=== PATIENT | male | born 1950 | race Caucasian/White ===

== ENCOUNTER 2019-11-12 14:45 | Inpatient (IN) | payer OTHER ==
[~2019-11-12] VITALS: Ht 180.3 cm; Wt 76.7 kg
[2019-11-12 14:54] VITALS: BP 149/71
[2019-11-12] MEDS ORDERED: REXULTI0.25 MG PO (15:47)
[2019-11-12] MEDS ORDERED: NAMENDA 10 MG T10 MG PO (15:48)
[2019-11-12] MEDS ORDERED: LIPITOR40 MG PO (15:48)
[2019-11-12 16:06] LABS: ABSOLUTE NEUTROPHILS 4.1 thou/uL (1.4-8.2); BASOPHILS 0.5 % (0.0-2.0); EOSINOPHILS 0.8 % (0.0-3.0); HEMATOCRIT 42.5 % (42.0-52.0); HEMOGLOBIN 14.5 gm/dL (14.0-18.0); LYMPHOCYTES 27.6 % (24.0-44.0); MCH 30.6 pg (26.0-34.0); MONOCYTES 8.4 % (1.0-8.0); PLATELET COUNT 226 thou/uL (150-400); POLYS 62.7 % (36.0-66.0); RBC 4.72 mil/uL (4.50-6.00); RDW 12.5 % (10.5-14.5); WBC 6.5 thou/uL (4.0-11.0)
[2019-11-12 16:12] LABS: CALCIUM 9.6 mg/dL (8.5-10.1); CREATININE 1.1 mg/dL (0.7-1.3)
[2019-11-12 16:16] LABS: URINE BILIRUBIN NEGATIVE (Negative); URINE BLOOD NEGATIVE (Negative); URINE CLARITY CLEAR; URINE COLOR YELLOW; URINE GLUCOSE-RANDOM* NEGATIVE (Negative); URINE KETONES NEGATIVE (Negative); URINE LEUKOCYTES-REFLEX NEGATIVE (Negative); URINE NITRITE-REFLEX NEGATIVE (Negative); URINE PROTEIN (DIPSTICK) NEGATIVE (Negative); URINE UROBILINOGEN 0.2 E.U./dl (0.2-1.0)
[2019-11-12 16:18] LABS: ALBUMIN 4.1 g/dL (3.4-5.0); TOTAL BILIRUBIN 0.4 mg/dL (<0.1-1.0); TOTAL PROTEIN 7.2 g/dL (6.4-8.2)
[2019-11-12 17:22] VITALS: BP 143/74
[2019-11-12 17:24] VITALS: BP 143/74
[2019-11-12 18:30] VITALS: BP 144/77
[2019-11-12 19:43] VITALS: BP 113/63
--- NOTE | 2019-11-12 20:19 | NUR ---
PT ADMITTED AMBULATORY FROM HOME ACCOMPANIED BY TRANG. PT DEPRESSED BUT DENIES SI. HAD BEEN ON AN ANTIDEPRESSANT, BUT WITH LITTLE EFFECT. WANTS TO EXPLORE ACTIVITY OPTIONS. 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 CLAIMS TO BE EASILY BORED. ACTIVE WITH HER OWN SOCIAL GROUP OF WOMEN, AND HE FEELS LONELY SOMETIMES. AFFECT FLAT. AMBULATORY, SKIN INTACT AND ABLE TO FOLLOW DIRECTIONS WELL. ADMITS TO SOME MEMORY LOSS, AND THAT DOES BOTHER HIM. VSS. ONLY MEDICAL PROBLEM IS HYPERLIIDEMIA FOR WHICH HE TAKES A STATIN.
[2019-11-12 23:59] VITALS: BP 113/63
--- NOTE | 2019-11-13 03:27 | NUR ---
PT OUT IN DAY ROOM AFTER LEFT. EDGE OF THE GROUP. AFFECT BLUNTED. SOFT SPOKEN AND OBVIOUSLY DEPRESSED. TOOK HS MEDS ORDERED W/O PROBLEM. RETURNED TO ROOM AND HAS SLEPT WELL THROUGH THE NIGHT.
[2019-11-13 08:13] VITALS: BP 135/77
[2019-11-13 09:27] VITALS: BP 135/77
[2019-11-13 10:37] VITALS: BP 135/77
--- NOTE | 2019-11-13 11:51 | NUR ---
ASSUMED CARE AT 0700. PATIENT IS ALERT AND ORIENTED X2. PATIENT OSBORNE'S, CRYSTAL FLAT GRINDER ARE EQUAL. LUNGS ARE CLEAR. ABD IS SOFT WITH BSX4. PATIENT IS VERY ANXIOUS AND IS PACING. DR. CORTES NOTIFIED. LOW DOSE ATIVAN ORDERED. LOW DOSE BP MED ALSO WITH PARAMETERS TO HOLD IF <120 SBP. UP TO THE BATHROOM TO VOID JOVITA COLORED URINE. NO EDEMA NOTED. OUT TO THE DINING ROOM FOR MEALS. FALL AND SAFETY PROTOCOLS IN PLACE. DENIES ANY PAIN AT THIS TIME. WILL CONTINUE TO MONITER. PATIENT IS DEPRESSED AND IS HERE FOR MEDICATION ADJUSTMENT.
--- NOTE | 2019-11-13 12:40 | NUR ---
FLAKO met with pt's spouse and son while they visited this AM and set up a family meeting for 11:45 on 11/15 per request from the treatment team meeting this AM. Flako completed the Intake assessment and TP after speaking with pt's spouse earlier this AM. Pt lives in the home and has early onset dementia. Spouse reports that his memory is very short, and it makes him anxious and depressed. Pt is currently seeing Dr Johnson psychiatric care, and spouse has support with her bible group at [facility]. FLAKO suggested that she get extra support with the [employer] and advised her to consider looking for Memory care placement right away, and to have it lined up before he needs it. She stated that he has LTC insurance.
[2019-11-13 19:37] VITALS: BP 122/81
[2019-11-13 22:48] VITALS: BP 122/81
--- NOTE | 2019-11-13 23:47 | NUR ---
PATIENT HAS BEEN IN BED ALL NIGHT. HE LOOKS SAD. HE DENIES PAIN AND JUST WANTS TO BE LEFT ALONE. HE IS QUIET. PATIENT WAS UP TO THE BATHROOM TO VOID. HE AMBULATES WELL ON HIS OWN AND IS STEADY. VSS. BED IN LOW POSITION. ASSESSMENT NEGATIVE. WILL CONTINUE TO MONITOR.
--- NOTE | 2019-11-14 05:35 | NUR ---
PATIENT HAS SLEPT THRU THE NIGHT AND IS STILL SLEEPING. HE IS UP TO THE BATHROOM AD NNAMDI. DENIES PAIN. CONTINUING TO MONITOR.
[2019-11-14 09:18] VITALS: BP 134/75
--- NOTE | 2019-11-14 10:18 | NUR ---
VISIBLE IN DAYROOM ON INITITAL ASSESSMENT THIS AM- ANXIOUS FACIAL EXPRESSION AND SOME RESTLESSNESS,FIDGETING OBSERVED IN FORM OF TAPPING FOOT CONSTANTLY-SPEECH SLIGHTLY PRESSURED. DENIES C/O PAIN OR DISCOMFORT AND REPORTS SLEEP "PRETTY GOOD LAST NIGHT" AFTER BREAKFAST PACING RAPIDLY IN HALLWAYS DESPITE GROUP GOING ON IN DAYROOM WHEN DIRECTED TOWARD GROUP STATES THE ONLY THING THAT HELPS MY ANXIETY IS WALKING" SPOKE WITH PT BRIEFLY RE SOME BASIC GROUNDING,RELAXATION TECHNIQUES INCLUDING SIMPLE DISTRACTION TECHNIQUES AND DEEP BREATHING-APPEARS SLIGHTLY RESISITVE TO THESE SUGGESTIONS STATING THEY "WON'T HELP" ATIVAN 0.5MGPO PRN AT 0945 FOR ABOVE REPORTED AND PT DID ATTEND REMAINDER OF GROUP WITH MUCH ENCOURAGEMENT. IN ROOM AT THIS TIME APPEARS TO BE RESTING QUIETLY ON BED-REPORTS ANXIETY "BETTER"
[2019-11-14 19:20] VITALS: BP 129/73
--- NOTE | 2019-11-15 05:28 | NUR ---
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 HE SPENT EARLY EVENING PACING IN THE HALLS. SOMEWHAT ANXIOUS. PLEASANT ON APPROACH. PLEASANT AND COOPERATIVE WITH ASSESSMENT PROCESS, MEDS. NO APPARENT DISTRESS, NO C/O. WILL CONTINUE TO MONITOR.
--- NOTE | 2019-11-15 09:39 | NUR ---
CAME OUT BRIEFLY FOR AM GROUP BEFORE RETURNING TO ROOM-REPORTS ANXIETY RATED A 8 DURING AM ASSESSMENT STATES HE WOKE UP ANXIOUS AND THAT MORNINGS ARE USUALLY "WORSE" FAR ANXIETY LEVEL GOES. DENIES SI/SH/HI AND SLIGHT INCREASE IN SPONTANEOUS VERBALIZATION-USING HUMOR. GAIT IS STEADY WITHOUT ASSISTIVE DEVICES. FACE FLUSHED BUT BP IS WNL AT 128/72. DENIES SO PAIN/DISCOMFORT AND STATES HE SLEPT "PRETTY GOOD" LAST NIGHT.
--- NOTE | 2019-11-15 11:57 | NUR ---
PT RATES ANXIETY SYMPTOMS A 3 ON 1-10 SCALE AT THIS TIME-REPORTS DEPRESSIVE SYMPTOMS A 6. DENIES SI/SH/HI. DESCRIBES CURRENT MOOD "UPBEAT"
--- NOTE | 2019-11-15 12:50 | NUR ---
FLAKO and Dr Posada completed a family meeting via telephone as pt's spouse could not drive in the winter weather. Dr posada reinforced that she needed to start considering PD paid out of pocket or with their LTC insurance. Pt's spouse was ignorant of most of the request for inofrmation regarding the plans for her when he can not longer be cared for in the home. Dr Posada recomended respite care while they tried to go a vacation in Nov to [place]. FLAKO requested that she have the information ready to report on Saturday 11/18 at 2pm. Flako encouraged her to have her family involved as support, as she seemed overwhelmed with the task. It was established that this pt was going home at d/c.
--- NOTE | 2019-11-15 18:23 | NUR ---
REPORTS NO RESULTS FROM MOM/PRUNE JUICE GIVEN LAST PM-STATES LAST BM WAS ON 11/11 PER PT REPORT. BS ACTIVE -X4. ABDOMEN SOFT, NON-TENDER ON PALPATION. DR. STEIN CONTACTED ORDERS RECEIVED. FLEETS ENEMA GIVEN PER ORDER
--- NOTE | 2019-11-15 18:47 | NUR ---
DID HAVE LARGE FORMED BM AFTER FLEETS ENEMA-ENCOURAGED INCREASED FLUIDS-AMBULATION
[2019-11-15 20:03] VITALS: BP 121/72
--- NOTE | 2019-11-16 02:45 | NUR ---
ASSUMED CARE OF PATIENT ON 11/15/2019 AT 1915. PATIENT IS OBSERVED PACING THE HALLWAYS, BUT APPEARS WITH AN APPROPRIATE AFFECT. HE IS DISCHARGED FOCUS REPORTING TO THIS NURSE 'THIS ISNT THE FIRST TIME CARLOS BEEN HERE IM KIND OF BORED SO ID LIKE TO GO HOME.' PATIENT IS ALERT AND ORIENTED 1-2X. HE WAS CALM AND COOPERATIVE AND WAS COMPLIANT WITH ASSESSMENT AND MEDICATION. HE DENIED SI HI WELL HALLUCINATIONS. HE DOES APPEAR ANXIOUS R/T OBSERVATIONS OF BODY LANGUAGE SUCH FIDGETY, PACING, AND APPEARING WITH A NERVOUS AFFECT AT TIMES. HE DID NOT REPORT ANY MEDICAL CONCERNS WITH NO S/S OF DISTRESS. NURSING WILL MAINTAIN ALL PRECAUTIONS TO ENSURE SAFETY.
[2019-11-16 08:17] VITALS: BP 119/71
[2019-11-16 09:26] VITALS: BP 119/71
--- NOTE | 2019-11-16 12:18 | NUR ---
ASSUMED CARE AT 0700 THIS MORNING. ATE ON THE UNIT. TOOK MEDICATIONS WITHOUT PROBLEMS NOTED.
[2019-11-16 19:06] VITALS: BP 150/76
--- NOTE | 2019-11-17 00:23 | NUR ---
ASSUMED CARE OF PATIENT ON 11/16/2019 AT APPROXIMATELY 1915. PATIENT WAS OBSERVED WANDERING THE HALLS WITH A BLANK PERPLEXED AFFECT. WHEN GREETED HE IS CALM AND COOPERATIVE AND WILL CONVERSATE WITH YOU. HE IS MEDICATION COMPLAINT, NO AGGRESSIVE BX OBSERVED. HE DENIES SI HI, DENIES ANY FLEETING THOUGHTS TO HARM SELF OR OTHERS. HE DENIED MEDICAL CONCERNS WITH NO S/S OF DISTRESS. NURSING WILL MAINTAIN ALL PRECAUTIONS TO ENSURE SAFETY AT ALL TIMES.
--- NOTE | 2019-11-17 04:36 | NUR ---
PATIENT AWOKE, C/O ANXIETY THIS NURSE ADMINISTERED LORAZEPAM 0.5MG PRN ORDERED. PATIENT REPORTS FEELING ANXIOUS R/T DISCHARGE AND EXCITEMENT. HE REPORTS WALKING HELPS REDUCE HIS ANXIETY AND LOOKING FORWARD TO DISCHARGE TO GO TO [place] TO BE ABLE TO WALK AND EXPLORE. WILL CONTINUE TO MONITOR.
[2019-11-17 07:51] VITALS: BP 123/75
[2019-11-17 09:49] VITALS: BP 123/75
--- NOTE | 2019-11-17 09:54 | NUR ---
ASSUMED CARE AT 0700 THIS MORNING. PT. REMAINS SECLUSIVE IN HIS ROOM. HE COMES OUT TO EAT AND RETURNS TO HIS ROOM RIGHT AFTER. HE WILL WALK IN THE HALLS AT TIMES. HE IS PLEASANT AND COOPERATIVE IN HIS INTERACTIONS WITH STAFF. HE TAKES HIS MEDICATIONS WITHOUT DIFFICULTIES.
[2019-11-17 19:17] VITALS: BP 121/80
[2019-11-17 21:15] VITALS: BP 121/80
--- NOTE | 2019-11-18 04:00 | NUR ---
PATIENT HAS BEEN SLEEPING ALL NIGHT. HE DID GET UP TO USE THE BATHROOM TO VOID A COUPLE OF TIMES. HE DOES HAVE A FLAT EFFECT. DENIES PAIN. DENIES SI/HI. STILL IS ISOLATIVE TO ROOM AND WITHDRAWN. DOES NOT TALK UNLESS SPOKEN TOO FIRST. VSS. BED IN LOW POSITION.
--- NOTE | 2019-11-18 04:23 | NUR ---
PATIENT UP AND PACING THE HALLS. ASKED IF HE WAS ABLE TO SLEEP. HE STATES HE FEELS SO ANXIOUS BECAUSE HE'S HOPING TO D/C TO HOME TODAY AND THINKS HE IS GOING HOME. PATIENT HAS NOT HAD BM FOR A FEW DAYS EITHER. HE STATES HE DOESN'T EAT A WHOLE LOT SO HE IS NOT SUPRISED BY THIS. HE IS JUST WANTING SOMETHING FOR ANXIETY AT THIS TIME. ATIVAN 0.5MG PO GIVEN. PATIENT STATES HE WANTS TO KEEP WALKING TO RELEASE SOME VENTED UP ANXIETY. PATIENT PLEASANT AND COOPERATIVE. HIS THOUGHTS OF GOING HOME AND EXCITEMENT TO DO SO ARE KEEPING HIM AWAKE.
[2019-11-18 08:06] VITALS: BP 138/76
--- NOTE | 2019-11-18 08:27 | NUR ---
SW completed a chart review and pt is expecting to d/c home. Will meet with family today at 1pm. Hopefully a better plan will be in place.
--- NOTE | 2019-11-18 10:12 | NUR ---
FACIAL EXPRESSION IS ANXIOUS PACING IN HALLWAYS-DENIES SI/SH/HI. RATES DEPRESSIVE SYMPTOMS 4 OUT OF 10-ANXIETY SYMPTOMS 8 OUT OF 10-DID HAVE ATIVAN PRN AT APPROX 0420 THIS AM AND STATE[facility] HAS "WORN OFF"
[2019-11-18 12:23] VITALS: BP 138/76
[2019-11-18] MEDS ORDERED: NORVASC5 MG PO (13:58)
[2019-11-18] MEDS ORDERED: SEROQUEL 25 MG25 M1 PO (13:59)
[2019-11-18] MEDS ORDERED: LORAZEPAM 0.50.5 MG PO (13:59)
--- NOTE | 2019-11-18 14:26 | NUR ---
MEGAN provided family with handout for the follow up appt at [facility], [place], operated by [facility] in the next 7 days. pt has an appt with Dr Brian Johnson [phone] on 12/30/19. MEGAN will fax the d/c summary [phone] Pt's spouse indicated there was LTC insurance that will provide attendant care and they have someone who is putting together a schedule . Pt and spouse are going to [place] in 2 weeks and will have famimly to supoort them.
--- NOTE | 2019-11-19 07:53 | NUR ---
[facility] INSTRUCTIONS REVIEWED WITH PT AND FAMILY AFTER FAMILY MEETING INCLUDING DC MEDS,RX AND F/U RECOMMENDATIONS. PT/FAMILY DENY QUESTIONS/CONCERNS AND STATE UNDERSTANDING. PT SMILING AND UP IN MOOD AT TIME OF DC-DENIES SI/SH/HI
--- NOTE | 2019-11-21 19:54 | D ---
[facility] [place] [address] DISCHARGE SUMMARY Name: DILCIA BONE Room #: 526A-A [facility] IN ..#: [id number] Admission: 11/12/19 Attend Phys: Denny Posada DO Discharge: 11/18/19 Date of : 54 Report #: [id number] THIS REPORT FOR: //name// CC: Denny Posada Dilan Funk DATE OF SERVICE: 11/18/2019 INPATIENT PSYCHIATRIC DISCHARGE SUMMARY ATTENDING PHYSICIAN: Denny Posada DO STEEL ERECTING PUSHER AT THE TIME OF DISCHARGE: Hemant Mitchell MD DISCHARGE DIAGNOSES: Major neurocognitive disorder, likely due to early Alzheimer's disease with behavioral disturbance, improved; 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 DISCHARGE PLAN: Discharging to his home where he lives with his . Family has elected to take 22/05 care of the patient. The patient's aftercare will be at [facility] in the next 7 days for crisis. He has an appointment with Dr. Bebo Fox on 12/30/2019. He appears to have a long-term care insurance that will pay $1000 a month. Also, the patient and spouse are going to [place] in 2 weeks. They have been advised that the patient cannot be left alone at any time, also are counseled on caregiver burnout. DISCHARGE MEDICATIONS: Amlodipine besylate 2.5 mg p.o. daily, but the pharmacy is requesting a 90-day supply which I approved; quetiapine fumarate 25 mg p.o. at 0900, 1500, 2100 for anxiety control; lorazepam 0.5 mg p.o. q. 6 hours p.r.n. anxiety, Rx given for #15 for breakthrough; atorvastatin calcium 40 mg p.o. daily for hyperlipidemia; memantine 10 mg p.o. b.i.d. for cognitive enhancement; Rexulti was stopped on this admission. LABORATORY DATA: This admission, CBC within normal limits. Chemistries are all within normal limits and CMP with albumin 4.1, sodium 142, potassium 4.0. Urinalysis was negative. The patient's family were counseled to check on vitamin D and B12 level outpatient. REASON FOR ADMISSION: Back on 11/12/2019, the patient presented to the ED with unexplained worsening depression that began 3-4 weeks prior. The patient had received transcranial magnetic stimulation as well as prescribed Rexulti with intermittent use of clonazepam. HOSPITAL COURSE: He was admitted to Geriatric Psychiatry Unit for multiple reasons. I elected to start him on Seroquel regimen, which was titrated well; he had a robust response to small dosage. I had spoken to the last week [address] [place] [address] DISCHARGE SUMMARY Name: DILCIA BONE Room #: 526A-[facility] IN M.R.#: [id number] Admission: 11/12/19 Attend Phys: Denny Posada DO Discharge: 11/18/19 Date of : 54 Report #: [id number] about measures to provide him with memory limited level of care in a private residence, I heard back this Monday, she did not want to place and wanted to take the patient home. On the day of discharge, the patient was not suicidal or homicidal, was in good mood. VITAL SIGNS: On the day of discharge, temperature 37.0, pulse 59, respirations 20, BP 138/76. MENTAL STATUS EXAMINATION: This is a well-developed, fairly nourished, male, wearing glasses. Attention is limited. Concentration is limited. Speech is normal rate. Thought process is linear and goal directed. Thought content, focused on going home. No psychomotor agitation. No psychomotor retardation. Denied SI or HI. Denied hopelessness or helplessness. Memory impaired, insight impaired. Judgment is limited. Fund of knowledge is below average. PROGNOSIS: Prognosis for the patient is guarded due to having early Alzheimer's disease. <ELECTRONICALLY SIGNED> By: Denny Posada DO 11/21/191953 00 Denyn Posada DO /nt
== END 2019-11-18 14:30 | disposition home or self-care (01) | DRG 57 ==
LOC: ER 14:45 → SBH 17:25 → ER 17:25 → SBH 17:27
PROVIDERS: Physician Assistant; ADMIT Psychiatry & Neurology Psychiatry
DX: G30.9 Alzheimer's disease, unspecified (principal); F02.81 Dementia in other diseases classified elsewhere, unspecified severity, with behavioral disturbance; R45.851 Suicidal ideations; F01.51 Vascular dementia, unspecified severity, with behavioral disturbance; F32.9 Major depressive disorder, single episode, unspecified; F41.9 Anxiety disorder, unspecified; E78.5 Hyperlipidemia, unspecified; I10 Essential (primary) hypertension; Z85.46 Personal history of malignant neoplasm of prostate
CPT/HCPCS: 10880